=== PATIENT | female | born 1950 | race Caucasian/White ===

== ENCOUNTER → 2017-04-11 | Outpatient (CLI) | payer MEDICARE, OTHER | LOC: RAD 08:08 | PROVIDERS: ATTEND Nurse Practitioner | DX: Z12.31 Encounter for screening mammogram for malignant neoplasm of breast (principal) | CPT/HCPCS: 77067 ==

== ENCOUNTER → 2018-04-12 | Outpatient (CLI) | payer MEDICARE, OTHER ==
--- NOTE | 2018-04-12 10:48 | Diagnostic Imaging Report ---
Indication: Routine screening. Comparison is made with prior mammogram from 04/11/2017 and 04/10/2016. 2-D and 3-D bilateral screening mammography was performed with CAD. Both breasts are heterogeneously dense, limiting the sensitivity of mammography. Circumscribed nodule medial right breast is stable. No new mass or malignant-appearing microcalcifications are seen. There are benign calcifications present. The axillae are unremarkable. Impression: BI-RADS category 2 No mammographic features suspicious for malignancy are identified. ACR BI-RADS Category 2: Benign findings. Result letter will be mailed to the patient. Note: At least 10% of breast cancer is not imaged by mammography. Dictated by: Dictated on workstation # [id number]
== END ==
LOC: RAD 08:30
PROVIDERS: ATTEND Obstetrics & Gynecology
DX: Z12.31 Encounter for screening mammogram for malignant neoplasm of breast (principal)
CPT/HCPCS: 77067

== ENCOUNTER → 2019-04-15 | Outpatient (CLI) | payer MEDICARE, OTHER ==
--- NOTE | 2019-04-15 14:51 | Diagnostic Imaging Report ---
INDICATION: Routine screening. COMPARISON: 04/12/2018 and 04/11/2017. TECHNIQUE: 2D and 3D bilateral screening mammography was performed with CAD. FINDINGS: Both breasts remain heterogeneously dense, limiting the sensitivity of mammography. Benign circumscribed nodules in the right breast appear stable. No spiculated mass is identified. No malignant appearing microcalcifications are seen. There are benign calcifications present. The axillae are unremarkable. IMPRESSION: No mammographic features suspicious for malignancy are identified. ACR BI-RADS Category 2: Benign findings. Result letter will be mailed to the patient. Note: At least 10% of breast cancer is not imaged by mammography. Dictated by: Dictated on workstation # [id number]
== END ==
LOC: RAD 08:58
PROVIDERS: ATTEND Obstetrics & Gynecology
DX: Z12.31 Encounter for screening mammogram for malignant neoplasm of breast (principal)
CPT/HCPCS: 77067

== ENCOUNTER 2019-07-13 08:15 | Emergency (ER) | payer MEDICARE, OTHER ==
[~2019-07-13] VITALS: Ht 162 cm; Wt 84.5 kg
[2019-07-13 08:39] LABS: BASOPHILS % (AUTO) 0 % (0-10); EOSINOPHILS % (AUTO) 1 % (0-10); HEMATOCRIT 40 % (35-52); HEMOGLOBIN 13.6 G/DL (11.5-16.0); LYMPHOCYTES # (AUTO) 1.6 X 10^3 (1.0-4.0); LYMPHOCYTES % (AUTO) 21 % (12-44); MEAN CORPUSCULAR HEMOGLOBIN 31 PG (25-34); MEAN CORPUSCULAR HGB CONC 34 G/DL (32-36); MEAN CORPUSCULAR VOLUME 92 FL (80-99); MEAN PLATELET VOLUME 10.1 FL (7.4-10.4); MONOCYTES # (AUTO) 0.4 X 10^3 (0.0-1.0); MONOCYTES % (AUTO) 5 % (0-12); NEUTROPHILS # (AUTO) 5.7 X 10^3 (1.8-7.8); NEUTROPHILS % (AUTO) 73 % (42-75); PLATELET COUNT 192 10^3/uL (130-400); WHITE BLOOD COUNT 7.7 10^3/uL (4.3-11.0)
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
[2019-07-13 08:58] LABS: ALANINE AMINOTRANSFERASE 27 U/L (0-55); ALBUMIN 4.1 GM/DL (3.2-4.5); ALKALINE PHOSPHATASE 91 U/L (40-136); BILIRUBIN,TOTAL 0.4 MG/DL (0.1-1.0); BUN/CREATININE RATIO 22; CALCIUM 9.3 MG/DL (8.5-10.1); CARBON DIOXIDE 21 MMOL/L (21-32); CHLORIDE 107 MMOL/L (98-107); CREATININE SERUM 0.97 MG/DL (0.60-1.30); GFR ESTIMATED 57; GLUCOSE 120 MG/DL (70-105); POTASSIUM 3.5 MMOL/L (3.6-5.0); SODIUM 140 MMOL/L (135-145); TOTAL PROTEIN 7.6 GM/DL (6.4-8.2)
[2019-07-13] MEDS ORDERED: TETANUS,DIPTH,PERTUSS P/F (BOOSTRIX) 0.5 ML VIAL IM ONE (09:00)
[2019-07-13 09:01] LABS: BILIRUBIN,URINE NEGATIVE (NEGATIVE); CLARITY,URINE CLEAR; COLOR,URINE YELLOW; GLUCOSE, URINE (UA) NEGATIVE (NEGATIVE); KETONES,URINE NEGATIVE (NEGATIVE); LEUKOCYTE ESTERASE ,URINE NEGATIVE (NEGATIVE); NITRITE,URINE NEGATIVE (NEGATIVE); PH,URINE 7 (5-9); PROTEIN,URINE 2+ (NEGATIVE)
[2019-07-13 09:02] LABS: INR 0.9 (0.8-1.4); PROTHROMBIN TIME PATIENT 12.4 SEC (12.2-14.7)
[2019-07-13 09:11] LABS: FIBRIN DEGRADATION PRODUCTS 1.11 UG/ML (0.00-0.49)
[2019-07-13 09:14] LABS: BACTERIA,URINE NEGATIVE /HPF; RBC,URINE RARE /HPF
[2019-07-13] MEDS ORDERED: LISI-552 (09:45)
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
[2019-07-13 10:15] VITALS: BP 185/96
== END 2019-07-13 10:15 | disposition short-term general hospital (02) ==
LOC: EDUNIT# 08:15 → ER 08:16
DX: I63.9 Cerebral infarction, unspecified (principal); I10 Essential (primary) hypertension; V43.92XA Unspecified car occupant injured in collision with other type car in traffic accident, initial encounter
CPT/HCPCS: 36415; 51702; 70450; 70490; 70496; 70498; 71045; 80053; 81000; 82962; 84484; 85025; 85379; 85610; 85730; 90715; 93005; 93041

== ENCOUNTER → 2020-04-27 | Outpatient (CLI) | payer MEDICARE, OTHER ==
[~2020-04-27] MED LIST: LISI-552
--- NOTE | 2020-04-27 13:00 | Diagnostic Imaging Report ---
INDICATION: Routine screening. COMPARISON: 04/15/2019 and 04/12/2018. TECHNIQUE: 2D and 3D bilateral screening mammography was performed with CAD. FINDINGS: Both breasts remain heterogeneously dense, limiting the sensitivity of mammography. There are benign calcifications. Benign circumscribed nodules in the right breast appear stable. No spiculated mass or malignant appearing microcalcifications are seen. The axillae are unremarkable. IMPRESSION: No mammographic features suspicious for malignancy are identified. ACR BI-RADS Category 2: Benign findings. Result letter will be mailed to the patient. Note: At least 10% of breast cancer is not imaged by mammography. Dictated by: Dictated on workstation # [id number]
== END ==
LOC: RAD 09:29
PROVIDERS: ATTEND Internal Medicine
DX: Z12.31 Encounter for screening mammogram for malignant neoplasm of breast (principal)
CPT/HCPCS: 77063; 77067

== ENCOUNTER → 2021-04-28 | Outpatient (CLI) | payer MEDICARE, OTHER ==
[~2021-04-28] MED LIST changes: -LISI-552; +LISI20TA26
--- NOTE | 2021-04-28 13:21 | Diagnostic Imaging Report ---
INDICATION: Routine screening. COMPARISON is made with prior mammograms from 04/27/2020 and 04/15/2019. 2-D and 3-D bilateral screening mammography was performed with CAD. Both breasts are heterogeneously dense, limiting the sensitivity of mammography. Circumscribed masses in the right breast are stable. No spiculated mass or malignant-appearing microcalcifications are seen. There are occasional benign calcifications. Axillae are unremarkable. IMPRESSION: BI-RADS Category 2 No mammographic features suspicious for malignancy are identified. ACR BI-RADS Category 2: Benign findings. Result letter will be mailed to the patient. Note: At least 10% of breast cancer is not imaged by mammography. Dictated by: Dictated on workstation # [id number]
== END ==
LOC: RAD 11:15
PROVIDERS: ATTEND Nurse Practitioner Family
DX: Z12.31 Encounter for screening mammogram for malignant neoplasm of breast (principal)
CPT/HCPCS: 77063; 77067

== ENCOUNTER 2021-12-08 07:54 | Outpatient (CLI) | payer MEDICARE, OTHER ==
[~2021-12-08] VITALS: Ht 162.6 cm; Wt 79.6 kg
[2021-12-08] MEDS ORDERED: CYAN250014 PO (11:43)
[2021-12-08] MEDS ORDERED: CALC-308 PO (11:43)
[2021-12-08] MEDS ORDERED: ATOR10TA66 PO (11:43)
[2021-12-08] MEDS ORDERED: POTA-179 PO (11:43)
[2021-12-08] MEDS ORDERED: MAGN100T5 PO (11:43)
== END 2021-12-08 11:44 | disposition home or self-care (01) ==
LOC: PREOP 07:54
PROVIDERS: ATTEND Specialist
DX: Z01.818 Encounter for other preprocedural examination (principal)

== ENCOUNTER 2021-12-22 05:50 | Outpatient (CLI) | payer MEDICARE, OTHER ==
[~2021-12-22 05:50] MED LIST changes: +ATOR10TA66 PO; +CALC-308 PO; +CYAN250014 PO; +MAGN100T5 PO; +POTA-179 PO
== END 2021-12-27 11:14 | disposition home or self-care (01) ==
LOC: PREOP 05:50
PROVIDERS: ATTEND Specialist
DX: Z01.818 Encounter for other preprocedural examination (principal)

== ENCOUNTER 2021-12-30 07:05 | Day surgery (SDC) | payer MEDICARE, OTHER ==
[~2021-12-30] VITALS: Ht 162.3 cm; Wt 79.6 kg
[2021-12-30] MEDS ORDERED: LIDOCAINE PF 1% 2 ML VIAL IR PRN (07:15)
[2021-12-30] MEDS ORDERED: POVIDONE (BETADINE) OPHTH SOLN 5% 30 ML OP ONE (07:15)
[2021-12-30] MEDS: TETRACAINE 0.5% OPHTH SOLN 4 ML BTL (SINGLE DOSE ONLY) OU PRN ×4 (07:15→07:31)
[2021-12-30] MEDS ORDERED: MOXIFLOXACIN OPHTH SOLN 5 MG/ML 0.3 ML SYRINGE OP ONE (07:15)
[2021-12-30] MEDS ORDERED: TIMOLOL MALEATE 0.5% 5 ML (TIMOPTIC) BTL OU PRN (07:15)
[2021-12-30] MEDS: TROPICAMIDE 1% OPH SOLN (MYDRIACYL) 15 ML BTL OP SCH ×3 (07:21→07:31)
[2021-12-30] MEDS: PHENYLEPHRINE 10% OPHTH (NEO-SYN) 5 ML BTL OU SCH ×3 (07:21→07:31)
[2021-12-30 07:22] VITALS: BP 174/93
[2021-12-30] MEDS ORDERED: MIDAZOLAM 2 MG/2 ML (VERSED) VIAL ONE (07:26)
--- NOTE | 2021-12-30 08:23 | Ophthalmologist Pre-Op Note ---
Pre-Operative Progress Note H&P Reviewed The H&P was reviewed, patient examined and no changes noted. Date H&P Reviewed: Dec 30, 2021 Time H&P Reviewed: 08:22 Pre-Op Dx Cataract, Right Eye BRAD PRICE MD Dec 30, 2021 08:22
--- NOTE | 2021-12-30 08:42 | Ophthalmology Operative Report ---
Cataract removal/placement IOL PREOPERATIVE DIAGNOSIS: Cataract Right Eye POSTOPERATIVE DIAGNOSIS: Cataract Right Eye PROCEDURE: Cataract removal and placement of posterior chamber implant, right eye SURGEON: Shaq Price ANESTHESIA: Topical with sedation COMPLICATIONS: None ESTIMATED BLOOD LOSS: Minimal DESCRIPTION OF PROCEDURE: After proper informed consent was obtained, the patient, a 71 female, was taken to the Operating Room and the right eye was anesthetized with tetracaine. The right eye was then prepped and draped in the usual manner. A wire lid speculum was placed. A paracentesis was made at the left hand position. Preservative free lidocaine was injected into the anterior chamber followed by viscoelastic. A clear corneal incision was made in the temporal position. A capsulorrhexis was preformed and the central nuclear and cortical material were removed. The posterior capsule was polished and Luan 21.0 AU00T0 IOL was placed into the capsular bag. The residual viscoelastic was aspirated and balanced saline solution was injected into the anterior chamber. Moxifloxacin was injected into the anterior chamber. The wound was checked and found to be water tight. The patient tolerated the procedure well without complications. SHAQ PRICE MD Dec 30, 2021 08:42
[2021-12-30 08:54] VITALS: BP 174/93
[2021-12-30] MEDS ORDERED: acetaZOLAMIDE ER 500 MG CAP (DIAMOX SEQUELS) PO ONE (10:00)
--- NOTE | 2021-12-30 13:17 | Anesthesia-General Post-Op ---
MAC Patient Condition Mental Status/LOC: Same as Preop Cardiovascular: Satisfactory Nausea/Vomiting: Absent Respiratory: Satisfactory Pain: Controlled Complications: Absent Post Op Complications Complications None Follow Up Care/Instructions Patient Instructions None needed. Anesthesiology Discharge Order Discharge Order Patient is doing well, no complaints, stable vital signs, no apparent adverse anesthesia problems. No complications reported per nursing. JIM MARINO CRNA Dec 30, 2021 13:17
== END 2021-12-30 08:55 | disposition home or self-care (01) ==
LOC: SDC 07:05
PROVIDERS: ATTEND Specialist
DX: H25.9 Unspecified age-related cataract (principal)
CPT/HCPCS: 66984; V2632

== ENCOUNTER → 2022-02-10 | Outpatient (CLI) | payer MEDICARE, OTHER ==
--- NOTE | 2022-02-10 16:44 | Diagnostic Imaging Report ---
Clinical Indications: Patient with carotid bruit. Comparison: None Exam: Real-time ultrasound carotid Doppler duplex imaging is performed bilaterally with multiple real-time grayscale images obtained in various projections. Additional spectral analysis and color Doppler duple images were also obtained. Peak systolic velocity, ICA/CCA peak systolic ratio, spectral analysis, and vascular morphology are studied. Findings: ARTERY VELOCITY Right Left CCA 0.51 m/s 0.57 m/s ICA 0.58 m/s 0.55 m/s ECA 0.63 m/s 0.57 m/s ICA/CCA 1.14 0.95 VERT.ART Antegrade Antegrade There is mild bilateral carotid artery atherosclerotic disease. Impression: There is no grayscale or Doppler evidence of significant vascular stenosis. Dictated by: Dictated on workstation # [id number]
== END ==
LOC: CARD 13:00
PROVIDERS: ATTEND Nurse Practitioner Family
DX: I35.1 Nonrheumatic aortic (valve) insufficiency (principal)
CPT/HCPCS: 93306; 93880